=== PATIENT | female | born 1980 | race Caucasian/White ===

== ENCOUNTER 2022-10-24 20:39 | Emergency (ER) | payer BC, MEDICAID ==
[2022-10-24] MEDS ORDERED: Albuterol/Ipratropium 3.0-0.5 MG/3 ML Neb Soln NEB ONE ×2 (20:48→21:37)
[2022-10-24 21:19] LABS: ESTIMATED GFR 64 mL/min (>60)
[2022-10-24] MEDS ORDERED: Magnesium Sulfate/Water 2 GM in Premix Bag 1 BAG IV ONE (21:38)
[2022-10-24 21:40] LABS: BASE EXCESS VENOUS,POC -2 mmol/L (-2 - 3+); PCO2 VENOUS,POC 44 mmHg (41-51); PH VENOUS,POC 7.34 pH Units (7.32-7.43)
[2022-10-24] MEDS ORDERED: Iopamidol 755 Mg/ML 100 ML Bottle IV ONE (22:13)
[2022-10-24] MEDS ORDERED: methylPREDNISolone Sodium Succinate 125 MG/2 ML SDV IVPUSH ONE (22:17)
[2022-10-24] MEDS ORDERED: LORazepam 2 MG/ML SDV IVPUSH ONE (22:17)
[2022-10-24 23:18] VITALS: PULSE 135
[2022-10-25] MEDS ORDERED: Albuterol/Ipratropium 3.0-0.5 MG/3 ML Neb Soln NEB ONE ×2 (00:19→00:47)
[2022-10-25] MEDS ORDERED: Racepinephrine 2.25% 0.5 ML Neb Soln NEB ONE (00:31)
[2022-10-25] MEDS ORDERED: Sodium Chloride 0.9% Inhalation Soln 3 ML Neb INH PRN (00:31)
[2022-10-25 00:33] VITALS: BP 154/108
[2022-10-25 00:37] LABS: PH VENOUS,POC 7.33 pH Units (7.32-7.43)
[2022-10-25 01:10] LABS: CORONAVIRUS COVID-19 NAA NEGATIVE (NEGATIVE)
== END 2022-10-25 03:20 ==
LOC: FB.ED 20:39
DX: J45.901 Unspecified asthma with (acute) exacerbation (principal); E83.42 Hypomagnesemia; R79.89 Other specified abnormal findings of blood chemistry; D72.829 Elevated white blood cell count, unspecified; R77.9 Abnormality of plasma protein, unspecified; R94.31 Abnormal electrocardiogram [ECG] [EKG]; Z20.822 Contact with and (suspected) exposure to COVID-19; Z91.040 Latex allergy status; Z91.048 Other nonmedicinal substance allergy status; Z79.899 Other long term (current) drug therapy
CPT/HCPCS: 0241U; 36415; 71046; 71275; 80053; 81001; 83605; 83735; 83880; 84484; 85025; 85379; 86140; 87040; 93005; 93010; 94640; 94660; 96365; 96375; 99284; 99285-25; J2060; J2930; J3475; J7620; Q9967